=== PATIENT | female | born 1960 ===

== ENCOUNTER 2017-12-30 08:26 | Day surgery (SDC) | payer MEDICARE, OTHER ==
[2017-12-29 11:28] VITALS: BMI 26.1
[2017-12-30] MEDS ORDERED: Propofol 10 mg/ml Inj (20 ML) ONE (11:21)
[2017-12-30] MEDS ORDERED: Midazolam 2 MG/2 ML VIAL ONE (11:21)
[2017-12-30 12:08] VITALS: TEMP 97.1
[2017-12-30] MEDS ORDERED: Labetalol 5mg/ml (4ml) ONE (13:08)
[2017-12-30 15:27] VITALS: PULSE 77
[2017-12-30 15:38] VITALS: O2SAT 99
[2017-12-30 15:41] VITALS: BP 105/64; RESP 15
--- NOTE | 2017-12-30 18:56 | CARD ---
APPROVED REPORT Date of service: 12/30/2017 EKG Measurement Heart [id number] <Conclusion> Normal sinus rhythm Normal ECG
== END 2017-12-30 13:45 | disposition home or self-care (01) ==
LOC: C.ENDO 08:26
PROVIDERS: ATTEND Internal Medicine Gastroenterology
DX: K21.0 Gastro-esophageal reflux disease with esophagitis (principal); K29.70 Gastritis, unspecified, without bleeding; K64.8 Other hemorrhoids
CPT/HCPCS: 43239; 45378; 82948; 88305; 88312; 88313; 88342; 93005; J2001; J2250; J2704; J7040

== ENCOUNTER 2018-09-08 10:45 | Day surgery (SDC) | payer MEDICARE, OTHER ==
[2018-09-08 11:48] VITALS: BMI 27.9
[2018-09-08 12:09] VITALS: O2SAT 100
--- NOTE | 2018-09-08 14:03 | CP.SDSHP ---
Same Day Surgery H & P - History Proposed Procedure: colonoscopy Pre-Op Diagnosis: hx of polyps. colon cancer screening - Previous Medical/Surgical History Cardiac: Hypertension Misc: Other (GERD, Asthma) Previous Surgical History: Carpal tunnel. hysterectomy. endo 2014 - Allergies Allergies: Allergies aspirin Adverse Reaction (Verified 08/21/18 00:25) VOMITING - Current Medications Current Medications: acetamenophen clopedogrel cymbalta pepcid tricor lasix levamir humaloig mobic glucophage lopressor singulair sonata percocet ostera - Physical Exam General Appearance: no acute distress Vital Signs: Vital Signs 09/08/18 09/08/18 11:59 13:50 Temperature 96.9 F L 96.9 F L Pulse Rate 59 L 59 L Respiratory 20 20 Rate Blood Pressure 135/75 158/67 H O2 Sat by Pulse 100 100 Oximetry Mental Status: Alert & Oriented x3 Neuro: WNL Heart: WNL Lungs: WNL GI: WNL - {Optional Preform as Required} Abdomen: WNL - Impression Impression: hx of colon polyps. colon cancer screening Pt. Evaluated Today:Candidate for Anesthesia & Procedure: Yes - Date & Time Date: 09/08/18 Time: 14:30 Short Stay Discharge - Short Stay Discharge Admitting Diagnosis/Reason for Visit: SCREENING Disposition: HOME/ ROUTINE
[2018-09-08] MEDS ORDERED: Propofol 10 mg/ml Inj (20 ML) ONE ×2 (14:10→14:28)
[2018-09-08] MEDS ORDERED: Midazolam 2 MG/2 ML VIAL ONE (14:28)
[2018-09-08 15:24] VITALS: TEMP 98
[2018-09-08 15:26] VITALS: RESP 18
[2018-09-08 15:33] VITALS: BP 127/63; PULSE 62
== END 2018-09-08 16:00 | disposition home or self-care (01) ==
LOC: C.ENDO 10:45
PROVIDERS: ATTEND Internal Medicine Gastroenterology
DX: Z12.11 Encounter for screening for malignant neoplasm of colon (principal); K64.1 Second degree hemorrhoids
CPT/HCPCS: 45378; 82948; J2250; J2704

== ENCOUNTER 2018-09-27 18:21 | Outpatient (CLI) | payer MEDICARE, OTHER | END 2018-09-27 18:22 | disposition home or self-care (01) | LOC: C.SLEEP 18:22 | DX: G47.33 Obstructive sleep apnea (adult) (pediatric) (principal) ==